=== PATIENT | female | born 1960 | race Caucasian/White ===

== ENCOUNTER → 2016-08-29 | Outpatient (CLI) | payer BC ==
[~2016-08-29] MED LIST: ACET-819 PO; ACHD5005 PO; ALPR0.5T72 PO; CITA10TA PO; CPR500T PO; DEXT15CA13 PO; DICY10CA12 PO; ESTR-19 VG; HYDR-3454 PO; HYDR1TAB86 PO; HYOS0.1216 PO; LEVO500T69 PO; OXYC-12 PO; PHEN200T27 PO; SCR1T1 PO
--- NOTE | 2016-08-29 09:55 | Diagnostic Imaging Report ---
Bilateral screening mammogram The current study was also evaluated with a Computer Aided Detection (CAD) system. Indication: Screening. No current complaints stated on the questionnaire. COMPARISON: 06/07/15. FINDINGS: The breasts are composed of heterogeneously dense parenchyma which may decrease mammographic sensitivity. There is scarring along the inferior aspect of the left breast which appears to project on the central aspect of the cc projection. Apparent increased architectural distortion and asymmetry in the central aspect of the left cc projection however is seen on this exam. The right breast demonstrate no significant change. IMPRESSION: Central left breast asymmetry with apparent increased architectural distortion may relate to prior surgical biopsy and scarring. Focal compression views and ultrasound evaluation is recommended. BI-RADS 0. ACR BI-RADS Category 0: Incomplete. (Needs additional imaging evaluation). Result letter will be mailed to the patient. Note: At least 10% of breast cancer is not imaged by mammography. Dictated by: Dictated on workstation # [id number]
== END ==
LOC: RAD 07:21
PROVIDERS: ATTEND Nurse Practitioner Family
DX: Z12.31 Encounter for screening mammogram for malignant neoplasm of breast (principal)
CPT/HCPCS: 77067

== ENCOUNTER → 2016-10-02 | Outpatient (CLI) | payer BC ==
--- NOTE | 2016-10-02 13:56 | Diagnostic Imaging Report ---
EXAMINATION: Left breast diagnostic mammogram with a Computer Aided Detection (CAD) system. INDICATION: Followup left breast asymmetry. FINDINGS: A focus within the central aspect of the left breast is less prominent on the current evaluation in the true lateral projection and focal compression views. It is separable from the background dense parenchyma and may relate to summation artifact. IMPRESSION: The central left breast asymmetry is less prominent on additional views with dense background parenchyma seen. The ultrasound evaluation is pending. ACR BI-RADS Category 0: Incomplete. (Needs additional imaging evaluation). Result letter will be mailed to the patient. Note: At least 10% of breast cancer is not imaged by mammography. Dictated by: Dictated on workstation # [id number]
--- NOTE | 2016-10-02 17:36 | Diagnostic Imaging Report ---
Bilateral breast ultrasound. INDICATION: Left breast asymmetry. FINDINGS: There is a simple cyst at the 2:30 o'clock position, 2 cm from the nipple measuring 7 mm. No suspicious mass is seen in the four quadrants or retroareolar region of the left breast. In the axilla, there is a benign-appearing lymph node with suggestion of fatty hilum measuring 2.4 cm in size and is associated with suggestion of a small rim of thin cortex. IMPRESSION: No suspicious abnormality. Annual screening mammograms recommended. ACR BI-RADS Category 2: Benign findings. Dictated by: Dictated on workstation # [id number]
== END ==
LOC: RAD 13:09
PROVIDERS: ATTEND Nurse Practitioner Family
DX: N60.02 Solitary cyst of left breast (principal)

== ENCOUNTER → 2018-11-22 | Outpatient (CLI) | payer BC ==
--- NOTE | 2018-11-22 19:40 | Diagnostic Imaging Report ---
INDICATION: Palpable lump in the upper right breast. Correlation is made with prior mammograms from 08/29/2016 and 06/15/2015. 2-D and 3-D bilateral screening mammography was performed. The current study was also evaluated with a Computer Aided Detection (CAD) system. 3-D tomosynthesis was also performed and reviewed. FINDINGS: Both breasts remain heterogeneously dense, limiting the sensitivity of mammography. A BB marker was placed at the site of palpable abnormality in the upper and slightly inner right breast. No underlying abnormality is seen. Only fatty tissue is identified at this location. No mass or malignant-appearing microcalcifications are seen. There are occasional benign calcifications. Axillae are unremarkable. IMPRESSION: No mammographic features suspicious for malignancy are identified. Even so, directed sonographic interrogation of the area of palpable abnormality in the right breast is recommended and will be performed today. ACR BI-RADS Category 0: Incomplete. (Needs additional imaging evaluation). Result letter will be mailed to the patient. Note: At least 10% of breast cancer is not imaged by mammography. Dictated by: Dictated on workstation # [id number]
--- NOTE | 2018-11-22 21:06 | Diagnostic Imaging Report ---
INDICATION: Lump in the right breast. EXAMINATION: Sonographic interrogation of the area of lump in the upper and slightly inner right breast was performed. FINDINGS: No sonographic abnormality is seen. No solid or cystic mass is detected. IMPRESSION: No sonographic abnormality is seen. Continued close clinical and self breast exam is recommended to confirm stability of the palpable abnormality. ACR BI-RADS Category 1: Negative. Result letter will be mailed to the patient. Note: At least 10% of breast cancer is not imaged by mammography. Dictated by: Dictated on workstation # [id number]
== END ==
LOC: RAD 13:20
PROVIDERS: ATTEND Nurse Practitioner Family
DX: N63.10 Unspecified lump in the right breast, unspecified quadrant (principal)
CPT/HCPCS: 77066

== ENCOUNTER → 2019-11-19 | Outpatient (CLI) | payer BC ==
--- NOTE | 2019-11-20 10:21 | Diagnostic Imaging Report ---
INDICATION: Routine screening. COMPARISON is made with prior mammograms from 11/22/2018 and 09/07/2017. 2-D and 3-D bilateral screening mammography was performed with CAD. Both breasts remain heterogeneously dense, limiting the sensitivity of mammography. The parenchymal pattern is stable. No dominant mass or malignant appearing microcalcifications are seen. Axillae are unremarkable. IMPRESSION: BI-RADS Category 1 No mammographic features suspicious for malignancy are identified. ACR BI-RADS Category 1: Negative. Result letter will be mailed to the patient. Note: At least 10% of breast cancer is not imaged by mammography. Dictated by: Dictated on workstation # [id number]
== END ==
LOC: RAD 14:46
PROVIDERS: ATTEND Nurse Practitioner Family
DX: Z12.31 Encounter for screening mammogram for malignant neoplasm of breast (principal)
CPT/HCPCS: 77063; 77067

== ENCOUNTER → 2022-12-08 | Outpatient (CLI) | payer BC ==
--- NOTE | 2022-12-08 12:38 | Diagnostic Imaging Report ---
Indication: Routine screening. Comparison is made with prior mammograms from 11/19/2019 and 11/22/2018. 2-D and 3-D bilateral screening mammography was performed with CAD. Both breasts are heterogeneously dense, limiting the sensitivity of mammography. The parenchymal pattern is stable. No mass or malignant-appearing microcalcifications are seen. Axillae are unremarkable. IMPRESSION: BI-RADS Category 1 No mammographic features suspicious for malignancy are identified. ACR BI-RADS Category 1: Negative. Result letter will be mailed to the patient. Note: At least 10% of breast cancer is not imaged by mammography. Dictated by: Dictated on workstation # [id number]
== END ==
LOC: RAD 09:30
PROVIDERS: ATTEND Nurse Practitioner Family
DX: Z12.31 Encounter for screening mammogram for malignant neoplasm of breast (principal)
CPT/HCPCS: 77063; 77067